=== PATIENT | female | born 2000 | race Caucasian/White ===

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

== ENCOUNTER 2020-06-05 12:03 | Emergency (ER) | payer OTHER ==
[~2020-06-05] VITALS: Ht 170.1 cm; Wt 56.7 kg
[~2020-06-05 12:03] MED LIST: NAPROSYN500 MG PO
[2020-06-05 12:15] VITALS: BP 118/64
[2020-06-05] MEDS ORDERED: DOXYCYCLINE150 MG PO (12:26)
== END 2020-06-05 12:36 | disposition home or self-care (01) ==
LOC: ED 12:03
DX: A26.0 Cutaneous erysipeloid (principal)

== ENCOUNTER 2021-07-18 08:28 | Emergency (ER) | payer OTHER ==
[~2021-07-18] VITALS: Ht 170.1 cm; Wt 54.4 kg
[~2021-07-18 08:28] MED LIST changes: +DOXYCYCLINE150 MG PO
[2021-07-18 08:34] VITALS: BP 104/69
[2021-07-18 08:58] LABS: BILIRUBIN Negative (Negative); BLOOD Negative (Negative); CLARITY Cloudy (Clear); COLOR Yellow (Yellow); GLUCOSE Negative (Negative); KETONE Negative (Negative); LEUKO ESTERASE Negative (Negative); NITRITE Negative (Negative); UROBILINOGEN 0.2 E.U./dl (0.0-1.0)
[2021-07-18 09:06] LABS: BACTERIA 3+; EPITHELIAL CELLS TNTC; MUCOUS TRACE; RBC 0-2 rbc/hpf (0-2); WBC 0-2 wbc/hpf (0-5)
== END 2021-07-18 11:00 | disposition home or self-care (01) ==
LOC: ED 08:28
PROVIDERS: Student in an Organized Health Care Education/Training Program
DX: M54.5 Low back pain (principal); M25.551 Pain in right hip; F17.200 Nicotine dependence, unspecified, uncomplicated; W18.39XA Other fall on same level, initial encounter; Y93.A1 Activity, exercise machines primarily for cardiorespiratory conditioning; Y92.89 Other specified places as the place of occurrence of the external cause; Y99.8 Other external cause status